=== PATIENT | male | born 1980 | race Hispanic/Latino ===

== ENCOUNTER 2019-02-24 23:07 | Emergency (ER) | payer OTHER ==
[~2019-02-24] VITALS: Ht 172.7 cm; Wt 113.9 kg
--- OUTSIDE RECORDS SUMMARY | 2019-02-24 23:10 | XMS REPORT ---
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 Allergies, Adverse Reactions, Alerts Allergy Name Allergy Type Status Severity Reaction(s) Onset Date Inactive Date Treating Clinician Comments lisinopril DA Active 2018-09-01 00:00:00 hydrocodone DA Active [place] 2018-09-01 00:00:00 acetaminophen DA Active [place] 2018-09-01 00:00:00 penicillin G DA Active [place] 2018-09-01 00:00:00 shellfish derived DA Active [place] 2018-09-01 00:00:00 No Known Allergies DA Active U 2016-09-23 00:00:00 Medications This patient has no known medications. Encounters Start Date/Time End Date/Time Encounter Type Admission Type Attending Clinicians Care Facility Care Department Encounter ID 2017-06-11 00:00:00 2017-06-11 00:00:00 Outpatient [facility] [id number] Results Test Description Test Time Test Comments Text Results Atomic Results Result Comments CBC W/AUTO DIFF 2018-09-01 11:06:00 WHITE BLOOD CELL (test code=WBC) 14.3 K/mm3 4.5-12.5 RED BLOOD CELL (test code=RBC) 4.35 mill/mm3 4.0-5.8 HEMOGLOBIN (test code=HGB) 11.9 gram/dL 13.0-17.5 HEMATOCRIT (test code=HCT) 35.6 % 42.0-52.0 MEAN CELL VOLUME (test code=MCV) 81.8 fL 80-98 MEAN CELL HGB (test code=MCH) 27.4 picogram 27.0-33.0 MEAN CELL HGB CONCETRATION (test code=MCHC) 33.4 gram/dL 33.0-36.0 RED CELL DISTRIBUTION WIDTH (test code=RDW) 12.9 % 11.6-16.2 RED CELL DISTRIBUTION WIDTH SD (test code=RDW-SD) 38.9 fL 37.0-51.0 PLATELET COUNT (test code=PLT) 295 K/mm3 150-450 MEAN PLATELET VOLUME (test code=MPV) 10.9 fL 6.7-11.0 NEUTROPHIL % (test code=NT%) 70.3 % 39.0-69.0 LYMPHOCYTE % (test code=LY%) 22.2 % 25.0-55.0 MONOCYTE % (test code=MO%) 5.1 % 0.0-10.0 EOSINOPHIL % (test code=EO%) 1.8 % 0.0-5.0 BASOPHIL % (test code=BA%) 0.4 % 0.0-1.0 NEUTROPHIL # (test code=NT#) 10.02 K/mm3 1.8-7.7 LYMPHOCYTE # (test code=LY#) 3.16 K/mm3 1.0-5.0 MONOCYTE # (test code=MO#) 0.73 K/mm3 0-0.8 EOSINOPHIL # (test code=EO#) 0.26 K/mm3 0.0-0.5 BASOPHIL # (test code=BA#) 0.05 K/mm3 0.0-0.2 MANUAL DIFF REQUIRED (test code=MDIFF) NO - XR CHEST 1 [id number] 10:51:00 FAX: Sujit Sorto [phone] [place]: [place] [address]: REG FAX: Nenita Lobo MD [facility] 1980 [facility]S: 38[facility]M [address] [facility] [address] Unit #: [id number] [facility]: [facility] [address] Phys: Nenita Lobo MD [place], [place] [address] Acct: [id number] Dis Date: Status: REG ER PHONE #: Exam Date: 09/01/2018 1048 FAX #: Reason: epistaxis, blood in airway EXAMS: CPT CODE: [id number] XR CHEST 1 V 21995 HISTORY: Epistaxis and blood in airway. COMPARISON: October 03, 2016. No acute infiltrates, effusion or congestion is noted. Suboptimal inspiration. Dependent changes. Cardiomegaly. IMPRESSION: No acute infiltrates, effusion or congestion. at 1051 Reported and signed by: Shimon Arellano M.D. CC: Jeremias Aranda MD; Nenita Lobo MD Technologist: Donavon Denis Trnctrd Date/Time/By: 09/01/2018 (1051) : By: [email or web address] Orig Print D/T: S: 09/01/2018 (3757) PAGE 1 Signed Report BASIC METABOLIC [id number] 09:35:00* Test Item Value Reference Range Comments SODIUM (test code=NA) 139 mmol/L 128-145 POTASSIUM (test code=K) 3.9 mmol/L 3.5-5.1 CHLORIDE (test code=CL) 101.0 mmol/L 98-107 CARBON DIOXIDE (test code=CO2) 27.4 mmol/L 22-29 ANION GAP (test code=GAP) 15 mmol/L 10-20 GLUCOSE (test code=GLU) 105 mg/dL 70-110 BLOOD UREA NITROGEN (test code=BUN) 22 mg/dL 7-22 GLOMERULAR FILTRATION RATE (test code=GFR) > 60 mL/min >=60 Estimated GFR by using Modified MDRD formula.Chronic kidney disease is defined as either kidney damageor GFR <60 mL/min/1.73 m2 for >3 months. CREATININE (test code=CREAT) 0.96 mg/dL 0.55-1.3 BUN/CREATININE RATIO (test code=BUN/CREA) 22.9 10-20 CALCIUM (test code=CA) 8.6 mg/dL 8.0-10.5 CBC W/AUTO [id number] 09:24:00* Test Item Value Reference Range Comments WHITE BLOOD CELL (test code=WBC) 8.4 K/mm3 4.5-12.5 RED BLOOD CELL (test code=RBC) 4.74 mill/mm3 4.0-5.8 HEMOGLOBIN (test code=HGB) 13.0 gram/dL 13.0-17.5 HEMATOCRIT (test code=HCT) 38.8 % 42.0-52.0 MEAN CELL VOLUME (test code=MCV) 81.9 fL 80-98 MEAN CELL HGB (test code=MCH) 27.4 picogram 27.0-33.0 MEAN CELL HGB CONCETRATION (test code=MCHC) 33.5 gram/dL 33.0-36.0 RED CELL DISTRIBUTION WIDTH (test code=RDW) 12.9 % 11.6-16.2 RED CELL DISTRIBUTION WIDTH SD (test code=RDW-SD) 38.8 fL 37.0-51.0 PLATELET COUNT (test code=PLT) 255 K/mm3 150-450 MEAN PLATELET VOLUME (test code=MPV) 10.8 fL 6.7-11.0 NEUTROPHIL % (test code=NT%) 59.6 % 39.0-69.0 LYMPHOCYTE % (test code=LY%) 31.5 % 25.0-55.0 MONOCYTE % (test code=MO%) 5.5 % 0.0-10.0 EOSINOPHIL % (test code=EO%) 3.0 % 0.0-5.0 BASOPHIL % (test code=BA%) 0.2 % 0.0-1.0 NEUTROPHIL # (test code=NT#) 4.98 K/mm3 1.8-7.7 LYMPHOCYTE # (test code=LY#) 2.64 K/mm3 1.0-5.0 MONOCYTE # (test code=MO#) 0.46 K/mm3 0-0.8 EOSINOPHIL # (test code=EO#) 0.25 K/mm3 0.0-0.5 BASOPHIL # (test code=BA#) 0.02 K/mm3 0.0-0.2 MANUAL DIFF REQUIRED (test code=MDIFF) NO
[2019-02-25] MEDS ORDERED: KETOROLAC TROMETHAMINE 30 MG/ML VIAL ONE (00:36)
[2019-02-25] MEDS ORDERED: KETOROLAC TROMETHAMINE 30 MG/ML VIAL IV STA (00:45)
--- NOTE | 2019-02-25 01:26 | Diagnostic Imaging Report ---
EXAMINATION: Chest PA and lateral views INDICATION: Pain or palpitations. ^[id number] ^[id number] COMPARISON: None FINDINGS: TUBES and LINES: None. LUNGS: Lungs are well inflated. Lungs are clear. There is no evidence of pneumonia or pulmonary edema. PLEURA: No pleural effusion or pneumothorax. HEART AND MEDIASTINUM: The cardiomediastinal silhouette is unremarkable. BONES AND SOFT TISSUES: No acute osseous lesion. Soft tissues are unremarkable. UPPER ABDOMEN: No free air under the diaphragm. IMPRESSION: No acute thoracic abnormality. Signed by: Dr. Kyle Curtis M.D. on 02/25/2019 1:22 AM
[2019-02-25 04:16] VITALS: BP 135/77
== END 2019-02-25 04:15 | disposition home or self-care (01) ==
LOC: FSED 23:07
DX: R07.89 Other chest pain (principal); R05 Cough; J20.9 Acute bronchitis, unspecified
CPT/HCPCS: 71046; 80053; 84484; 85025; 93005; 99284; J1885

== ENCOUNTER 2022-03-26 14:20 | Inpatient (IN) | payer OTHER ==
[~2022-03-26] VITALS: Ht 172.7 cm; Wt 113.9 kg
[2022-03-26] MEDS ORDERED: ONDANSETRON HCL INJ 2MG/ML 2ML 2 MG/ML VIAL IV STA (15:29)
[2022-03-26] MEDS ORDERED: SODIUM CHLORIDE 0.9% 1000ML 1,000 ML IV SCH (15:30)
[2022-03-26] MEDS ORDERED: SODIUM CHLORIDE FLUSH 10 ML SYR IV PRN (15:30)
[2022-03-26] MEDS ORDERED: DIPHENHYDRAMINE HCL INJ 50 MG/ML VIAL IV ONE (15:30)
[2022-03-26] MEDS ORDERED: Morphine 4mg INJECTION 4 MG/ML INJ IV ONE (15:30)
[2022-03-26 16:06] LABS: BASOPHILS % 0.2 % (0.0-1.0); EOSINOPHILS # (AUTO) 0.4 (0.0-0.4); EOSINOPHILS % 4.8 % (0.0-6.0); HEMATOCRIT 40.3 % (38.2-49.6); HEMOGLOBIN 12.9 g/dL (14.0-18.0); LYMPHOCYTES # (AUTO) 1.8 (1.0-3.2); MEAN CORPUSCULAR VOLUME 84.3 fL (81-99); MONOCYTES # (AUTO) 0.5 (0.2-0.8); MONOCYTES % 5.8 % (4.4-11.3); NEUTROPHILS # (AUTO) 5.4 (2.1-6.9); NEUTROPHILS % 66.8 % (38.7-80.0); PLATELET COUNT 128 x10e3/uL (140-360); RED BLOOD COUNT 4.78 x10e6/uL (4.3-5.7); RED CELL DISTRIBUTION WIDTH 13.8 % (11.7-14.4)
[2022-03-26 16:11] LABS: INR 0.91; PROTHROMBIN TIME 13.1 seconds (11.9-14.5)
[2022-03-26 16:12] LABS: PARTIAL THROMBOPLASTIN TIME 27.3 seconds (23.8-35.5)
[2022-03-26 16:22] LABS: ALBUMIN 3.8 g/dL (3.5-5.0); ANION GAP 15.6 mmol/L (8-16); CREATININE, SERUM 0.89 mg/dL (0.72-1.25); POTASSIUM 3.6 mmol/L (3.5-5.1)
[2022-03-26 16:37] LABS: AMPHETAMINES SCREEN,URINE NEGATIVE (NEGATIVE); PHENCYCLIDINE SCREEN,URINE NEGATIVE (NEGATIVE)
[2022-03-26 16:38] LABS: BENZODIAZEPINES SCREEN,URINE NEGATIVE (NEGATIVE); CLARITY,URINE CLEAR (CLEAR); COLOR,URINE YELLOW (YELLOW)
[2022-03-26 16:39] LABS: KETONES,URINE NEGATIVE (NEGATIVE); LEUKOCYTE ESTERASE ,URINE NEGATIVE (NEGATIVE); NITRITE,URINE NEGATIVE (NEGATIVE); PROTEIN,URINE DIPSTICK NEGATIVE (NEGATIVE); URINE UROBILINOGEN 0.2 mg/dL (0.2 - 1)
[2022-03-26 16:43] LABS: AMORPHOUS SEDIMENT,URINE MODERATE (FEW); BACTERIA,URINE MODERATE /HPF; EPITHELIAL CELLS,URINE FEW /LPF
[2022-03-26] MEDS ORDERED: IOPAMIDOL 370 MG/ML 100 ML INFUS..BTL INJ ONE (18:17)
[2022-03-26] MEDS: METRONIDAZOLE 500MG/NS 100ML 100 ML IV SCH (18:45)
[2022-03-26] MEDS ORDERED: LEVOFLOXACIN 500MG/D5W 100ML IV SCH (18:45)
[2022-03-26] MEDS: SODIUM CHLORIDE 0.9% 1000ML 1,000 ML IV SCH (19:37)
[2022-03-26 20:10] VITALS: BP 157/86
[2022-03-26] MEDS: PROMETHAZINE 12.5MG/ NACL 0.9% 12.5 MG/50 ML BAG IV PRN (21:27)
[2022-03-26] MEDS: Morphine 4mg INJECTION 4 MG/ML INJ IV PRN (21:28)
[2022-03-26] MEDS: LEVOFLOXACIN 500MG/D5W 100ML 100 ML IV SCH (21:30)
[2022-03-26 22:00] VITALS: BP 157/86
[2022-03-27] VITALS (7 sets, daily range): BP systolic 108–149; BP diastolic 63–90
[2022-03-27] MEDS ORDERED: FLUTICASONE PRO16 GM (00:23)
[2022-03-27] MEDS ORDERED: CLONAZEPAM0.5 MG PO (00:23)
[2022-03-27] MEDS ORDERED: GABAPENTIN300 MG PO (00:23)
[2022-03-27] MEDS ORDERED: METOPROLOL SUCC50 MG PO (00:23)
[2022-03-27] MEDS ORDERED: TERBINAFINE HC250 MG PO (00:23)
[2022-03-27] MEDS: Morphine 4mg INJECTION 4 MG/ML INJ IV PRN ×7 (01:33→20:57)
[2022-03-27] MEDS: PROMETHAZINE 12.5MG/ NACL 0.9% 12.5 MG/50 ML BAG IV PRN ×3 (01:33→22:22)
[2022-03-27] MEDS ORDERED: PEG (High)/E-LYTE SOLN 4,000 ML BTL PO ONE (02:15)
[2022-03-27 02:28] LABS: % IRON SATURATION 16 % (15-50); IRON 64 ug/dL (65-175); TOTAL IRON BINDING CAPACITY 392 ug/dL (261-478); TRANSFERRIN 280 mg/dL (174-364)
[2022-03-27] MEDS ORDERED: BISACODYL 5 MG TAB EC PO ONE ×3 (02:30→03:30)
[2022-03-27] MEDS: SODIUM CHLORIDE 0.9% 1000ML 1,000 ML IV SCH ×3 (02:45→17:36)
[2022-03-27] MEDS ORDERED: DIPHENHYDRAMINE HCL INJ 50 MG/ML VIAL IV STA (03:35)
[2022-03-27] MEDS: CLONAZEPAM 0.5 MG TAB PO PRN (03:50)
[2022-03-27] MEDS: METRONIDAZOLE 500MG/NS 100ML 100 ML IV SCH ×5 (05:50→23:55)
[2022-03-27 06:17] LABS: BASOPHILS % 0.5 % (0.0-1.0); EOSINOPHILS # (AUTO) 0.4 (0.0-0.4); EOSINOPHILS % 4.9 % (0.0-6.0); HEMATOCRIT 39.2 % (38.2-49.6); HEMOGLOBIN 12.7 g/dL (14.0-18.0); LYMPHOCYTES # (AUTO) 2.4 (1.0-3.2); LYMPHOCYTES % 27.6 % (18.0-39.1); MEAN CORPUSCULAR HGB CONC 32.4 g/dL (31-35); MEAN CORPUSCULAR VOLUME 83.2 fL (81-99); MONOCYTES # (AUTO) 0.6 (0.2-0.8); MONOCYTES % 6.8 % (4.4-11.3); NEUTROPHILS # (AUTO) 5.2 (2.1-6.9); NEUTROPHILS % 59.9 % (38.7-80.0); PLATELET COUNT 139 x10e3/uL (140-360); RED BLOOD COUNT 4.71 x10e6/uL (4.3-5.7); RED CELL DISTRIBUTION WIDTH 13.3 % (11.7-14.4)
[2022-03-27] MEDS: ONDANSETRON HCL INJ 2MG/ML 2ML 2 MG/ML VIAL IV PRN ×3 (06:20→20:57)
[2022-03-27 06:48] LABS: ALBUMIN 3.7 g/dL (3.5-5.0); ANION GAP 14.9 mmol/L (8-16); CALCIUM 8.7 mg/dL (8.4-10.2); CREATININE, SERUM 0.94 mg/dL (0.72-1.25); POTASSIUM 3.9 mmol/L (3.5-5.1)
[2022-03-27 07:22] LABS: CHOL/HDL RATIO 5.1 (3.9-4.7); MAGNESIUM 1.7 MG/DL (1.3-2.1); PHOSPHORUS 4.2 MG/DL (2.3-4.7)
[2022-03-27 08:09] LABS: THYROID STIMULATING HORMONE 1.72 uIU/mL (0.350-4.940)
[2022-03-27] MEDS ORDERED: HYOSCYAMINE SULFATE 0.5 MG/ML INJ ONE (11:59)
[2022-03-27] MEDS ORDERED: PROPOFOL IV EMULSION 10 MG/ML 20 ML VIAL ONE (11:59)
[2022-03-27] MEDS ORDERED: LIDOCAINE HCL 2% LOCAL INJ 5 ML SDV VIAL INJ ONE (11:59)
[2022-03-27] MEDS ORDERED: MIDAZOLAM HCL 2 MG/2 ML VIAL ONE (13:18)
[2022-03-27] MEDS ORDERED: FENTANYL CITRATE/PF 100MCG/2 ML INJ ONE (13:18)
[2022-03-27 17:20] LABS: WBC,FECAL (FECAL LACTOFERRIN) NEGATIVE (NEGATIVE)
[2022-03-27] MEDS: DICYCLOMINE HCL 20 MG TAB PO SCH ×2 (17:35→20:56)
[2022-03-27] MEDS: LACTOBACILLUS ACIDOPHILUS CAPSULE PO SCH (17:35)
[2022-03-27] MEDS: LEVOFLOXACIN 500MG/D5W 100ML 100 ML IV SCH (20:56)
[2022-03-28] VITALS (7 sets, daily range): BP systolic 108–128; BP diastolic 67–94
[2022-03-28] MEDS ORDERED: DIPHENHYDRAMINE HCL 25 MG CAP PO PRN (01:00)
[2022-03-28] MEDS: Morphine 4mg INJECTION 4 MG/ML INJ IV PRN ×5 (03:32→21:58)
[2022-03-28] MEDS: METRONIDAZOLE 500MG/NS 100ML 100 ML IV SCH ×3 (05:32→17:06)
[2022-03-28] MEDS: SODIUM CHLORIDE 0.9% 1000ML 1,000 ML IV SCH (05:36)
[2022-03-28] MEDS: DICYCLOMINE HCL 20 MG TAB PO SCH ×4 (07:45→21:54)
[2022-03-28] MEDS: LACTOBACILLUS ACIDOPHILUS CAPSULE PO SCH ×2 (07:45→17:06)
[2022-03-28 07:58] LABS: BASOPHILS % 0.3 % (0.0-1.0); EOSINOPHILS # (AUTO) 0.3 (0.0-0.4); EOSINOPHILS % 5.5 % (0.0-6.0); HEMATOCRIT 35.2 % (38.2-49.6); HEMOGLOBIN 11.6 g/dL (14.0-18.0); LYMPHOCYTES # (AUTO) 1.3 (1.0-3.2); LYMPHOCYTES % 22.8 % (18.0-39.1); MEAN CORPUSCULAR HEMOGLOBIN 27.1 pg (28-32); MEAN CORPUSCULAR VOLUME 82.2 fL (81-99); MONOCYTES # (AUTO) 0.4 (0.2-0.8); MONOCYTES % 7.2 % (4.4-11.3); NEUTROPHILS # (AUTO) 3.7 (2.1-6.9); PLATELET COUNT 185 x10e3/uL (140-360); RED BLOOD COUNT 4.28 x10e6/uL (4.3-5.7); RED CELL DISTRIBUTION WIDTH 13.8 % (11.7-14.4)
[2022-03-28 08:19] LABS: ANION GAP 13.6 mmol/L (8-16); CREATININE, SERUM 1.01 mg/dL (0.72-1.25); POTASSIUM 3.6 mmol/L (3.5-5.1)
[2022-03-28] MEDS: ONDANSETRON HCL INJ 2MG/ML 2ML 2 MG/ML VIAL IV PRN ×2 (11:32→21:58)
[2022-03-28] MEDS: PROMETHAZINE 12.5MG/ NACL 0.9% 12.5 MG/50 ML BAG IV PRN (13:09)
[2022-03-28] MEDS: LEVOFLOXACIN 500MG/D5W 100ML 100 ML IV SCH (21:56)
[2022-03-29] VITALS: BP 129/85
[2022-03-29] MEDS: CLONAZEPAM 0.5 MG TAB PO PRN (00:15)
[2022-03-29] MEDS: METRONIDAZOLE 500MG/NS 100ML 100 ML IV SCH ×2 (00:15→06:06)
[2022-03-29] MEDS: Morphine 4mg INJECTION 4 MG/ML INJ IV PRN ×2 (02:32→09:01)
[2022-03-29 04:00] VITALS: BP 103/76
[2022-03-29 06:41] VITALS: BP 103/76
[2022-03-29 06:42] VITALS: BP 103/76
[2022-03-29 07:44] LABS: BASOPHILS % 0.3 % (0.0-1.0); EOSINOPHILS # (AUTO) 0.3 (0.0-0.4); EOSINOPHILS % 5.3 % (0.0-6.0); HEMATOCRIT 36.1 % (38.2-49.6); HEMOGLOBIN 11.7 g/dL (14.0-18.0); LYMPHOCYTES # (AUTO) 1.6 (1.0-3.2); LYMPHOCYTES % 28.2 % (18.0-39.1); MEAN CORPUSCULAR HEMOGLOBIN 26.6 pg (28-32); MEAN CORPUSCULAR HGB CONC 32.4 g/dL (31-35); MONOCYTES # (AUTO) 0.4 (0.2-0.8); MONOCYTES % 6.5 % (4.4-11.3); NEUTROPHILS # (AUTO) 3.4 (2.1-6.9); NEUTROPHILS % 59.4 % (38.7-80.0); PLATELET COUNT 119 x10e3/uL (140-360); RED CELL DISTRIBUTION WIDTH 13.6 % (11.7-14.4)
[2022-03-29 08:01] LABS: ANION GAP 13.5 mmol/L (8-16); CALCIUM 8.5 mg/dL (8.4-10.2); CREATININE, SERUM 0.92 mg/dL (0.72-1.25); POTASSIUM 3.5 mmol/L (3.5-5.1)
[2022-03-29] MEDS ORDERED: LEVOFLOXACIN250 MG PO (08:04)
[2022-03-29 08:09] VITALS: BP 107/82
[2022-03-29 08:10] VITALS: BP 107/82
[2022-03-29] MEDS: DICYCLOMINE HCL 20 MG TAB PO SCH (09:01)
[2022-03-29] MEDS: ONDANSETRON HCL INJ 2MG/ML 2ML 2 MG/ML VIAL IV PRN (09:01)
[2022-03-29] MEDS: LACTOBACILLUS ACIDOPHILUS CAPSULE PO SCH (09:01)
[2022-03-29] MEDS ORDERED: METRONIDAZOLE 500 MG TAB PO SCH (12:00)
[2022-03-29] MEDS ORDERED: LEVOFLOXACIN 500 MG TAB PO SCH (17:00)
== END 2022-03-29 10:33 | disposition home or self-care (01) | DRG 385 ==
LOC: ER 14:25 → ERHOLD 18:34 → MED/SURG3 19:49
PROVIDERS: ADMIT Internal Medicine; ATTEND Internal Medicine
PROC: 0DBE8ZX Excision of Large Intestine, Via Natural or Artificial Opening Endoscopic, Diagnostic (ICD-10-PCS; 2022-03-27)
PROC: 0DBP8ZX Excision of Rectum, Via Natural or Artificial Opening Endoscopic, Diagnostic (ICD-10-PCS; 2022-03-27)
PROC: 0DBB8ZX Excision of Ileum, Via Natural or Artificial Opening Endoscopic, Diagnostic (ICD-10-PCS; principal; 2022-03-27 15:55)
DX: K51.90 Ulcerative colitis, unspecified, without complications (principal); U07.1 COVID-19; I10 Essential (primary) hypertension; G47.30 Sleep apnea, unspecified; Z88.5 Allergy status to narcotic agent; Z88.0 Allergy status to penicillin; Z88.8 Allergy status to other drugs, medicaments and biological substances; R15.9 Full incontinence of feces
CPT/HCPCS: 36415; 45380; 74177; 80048; 80053; 80061; 80307; 81001; 82607; 82746; 83036; 83540; 83630; 83690; 83735; 83993; 84100; 84443; 84466; 85025; 85045; 85610; 85730; 87045; 87324; 87449; 88304; 88305; 94799; 96361; 99284; J1200; J1956; J1980; J2001; J2250; J2270; J2405; J2550; J3010; J7030; Q9967

== ENCOUNTER → 2022-04-11 | Day surgery (SDC) | payer OTHER ==
[~2022-04-11] MED LIST: CLONAZEPAM0.5 MG PO; FLUTICASONE PRO16 GM; GABAPENTIN300 MG PO; LEVOFLOXACIN250 MG PO; LIDOCAINE HCL 2% LOCAL INJ 5 ML SDV VIAL INJ ONE; METOPROLOL SUCC50 MG PO; MIDAZOLAM HCL 2 MG/2 ML VIAL ONE; PROPOFOL IV EMULSION 10 MG/ML 20 ML VIAL ONE; TERBINAFINE HC250 MG PO
[2022-04-11 15:45] VITALS: BP 121/83
== END | disposition home or self-care (01) ==
LOC: OR 09:00
PROVIDERS: ATTEND Internal Medicine Gastroenterology
DX: K29.50 Unspecified chronic gastritis without bleeding (principal); K20.90 Esophagitis, unspecified without bleeding; K21.9 Gastro-esophageal reflux disease without esophagitis; K44.9 Diaphragmatic hernia without obstruction or gangrene; Z86.010 Personal history of colon polyps; R19.7 Diarrhea, unspecified; Z71.3 Dietary counseling and surveillance; G47.33 Obstructive sleep apnea (adult) (pediatric); I10 Essential (primary) hypertension; F32.A Depression, unspecified; F41.9 Anxiety disorder, unspecified; Z88.0 Allergy status to penicillin; Z88.8 Allergy status to other drugs, medicaments and biological substances; Z88.6 Allergy status to analgesic agent; Z79.899 Other long term (current) drug therapy; Z68.38 Body mass index [BMI] 38.0-38.9, adult; Z86.16 Personal history of COVID-19
CPT/HCPCS: 43239; J2001; J2250

== ENCOUNTER → 2022-04-30 | Outpatient (CLI) | payer OTHER ==
[~2022-04-30] MED LIST changes: +DICYCLOMINE HCL20 MG PO; +FLONASE ALLERG9.9 ML INH; -LIDOCAINE HCL 2% LOCAL INJ 5 ML SDV VIAL INJ ONE; -MIDAZOLAM HCL 2 MG/2 ML VIAL ONE; +NEURONTIN300 MG PO; +PROMETHAZINE HC25 M1 PO; -PROPOFOL IV EMULSION 10 MG/ML 20 ML VIAL ONE
== END ==
LOC: US 10:00
PROVIDERS: ATTEND Urology
DX: N45.3 Epididymo-orchitis (principal)
CPT/HCPCS: 76870; 93976

== ENCOUNTER 2022-05-01 17:34 | Emergency (ER) | payer OTHER ==
[~2022-05-01] VITALS: Ht 172.7 cm; Wt 112.9 kg
[~2022-05-01 17:34] MED LIST changes: -DICYCLOMINE HCL20 MG PO; -PROMETHAZINE HC25 M1 PO
[2022-05-01] MEDS ORDERED: Morphine 4mg INJECTION 4 MG/ML INJ IV STA (18:03)
[2022-05-01] MEDS ORDERED: ONDANSETRON HCL INJ 2MG/ML 2ML 2 MG/ML VIAL IV STA (18:03)
[2022-05-01] MEDS ORDERED: SODIUM CHLORIDE 0.9% 1000ML 1,000 ML IV STA (18:03)
[2022-05-01 18:15] LABS: BASOPHILS % 0.1 % (0.0-1.0); EOSINOPHILS # (AUTO) 0.3 (0.0-0.4); EOSINOPHILS % 3.2 % (0.0-6.0); HEMATOCRIT 43.1 % (38.2-49.6); HEMOGLOBIN 13.9 g/dL (14.0-18.0); LYMPHOCYTES # (AUTO) 2.1 (1.0-3.2); LYMPHOCYTES % 24.3 % (18.0-39.1); MEAN CORPUSCULAR HEMOGLOBIN 27.2 pg (28-32); MEAN CORPUSCULAR HGB CONC 32.3 g/dL (31-35); MEAN CORPUSCULAR VOLUME 84.3 fL (81-99); MONOCYTES # (AUTO) 0.5 (0.2-0.8); MONOCYTES % 5.8 % (4.4-11.3); NEUTROPHILS # (AUTO) 5.6 (2.1-6.9); NEUTROPHILS % 66.2 % (38.7-80.0); PLATELET COUNT 232 x10e3/uL (140-360); RED BLOOD COUNT 5.11 x10e6/uL (4.3-5.7); RED CELL DISTRIBUTION WIDTH 12.8 % (11.7-14.4)
[2022-05-01 18:27] LABS: INR 0.85; PROTHROMBIN TIME 12.4 seconds (11.9-14.5)
[2022-05-01 18:28] LABS: PARTIAL THROMBOPLASTIN TIME 25.6 seconds (23.8-35.5)
[2022-05-01 18:36] LABS: ALBUMIN 4.1 g/dL (3.5-5.0); ALBUMIN/GLOBULIN RATIO 1.2 (0.8-2.0); ANION GAP 17.7 mmol/L (8-16); CALCIUM 9.5 mg/dL (8.4-10.2); CREATININE, SERUM 1.24 mg/dL (0.72-1.25); POTASSIUM 3.7 mmol/L (3.5-5.1)
[2022-05-01] MEDS ORDERED: SODIUM CHLORIDE 0.9% 500ML 500 ML ONE (20:04)
[2022-05-01] MEDS ORDERED: DICYCLOMINE HCL20 MG PO (20:05)
[2022-05-01] MEDS ORDERED: PROMETHAZINE HC25 M1 PO (20:05)
[2022-05-01] MEDS ORDERED: FENTANYL CITRATE/PF 100MCG/2 ML INJ IJ ONE (20:15)
== END 2022-05-01 21:30 | disposition home or self-care (01) ==
LOC: ER 17:38
DX: R11.2 Nausea with vomiting, unspecified (principal); K52.9 Noninfective gastroenteritis and colitis, unspecified; R10.32 Left lower quadrant pain; K92.1 Melena; I10 Essential (primary) hypertension; K76.0 Fatty (change of) liver, not elsewhere classified; F41.9 Anxiety disorder, unspecified; G47.30 Sleep apnea, unspecified
CPT/HCPCS: 36415; 74176; 80053; 83690; 85025; 85610; 85730; 99284; J2270; J2405; J3010; J7030; J7040